=== PATIENT | female | born 1960 | race Two or more races ===

== ENCOUNTER 2022-10-17 22:05 | Inpatient (IN) | payer OTHER ==
[~2022-10-17] VITALS: Ht 152.4 cm; Wt 90.7 kg
[~2022-10-17 22:05] MED LIST: CONCERTA18 MG/BOTT; KLONOPIN0.125 MG/T; PROZAC10 MG
--- NOTE | 2022-10-17 22:45 | NUR ---
SE RECIBE PTE ALERTA, DESORIENTADA X3 ACOMPANADA DE [place] HIJA QUIEN REFIERE QUE AL LLEGAR A LA CASA DE [place] MAMA SE PERCATO QUE LA MISMA SE HABIA TOMADO CLONAZEPAM Y MORFINA Y LUEGO DE ESTO PERDIO CONOCIMIENTO, PRESENTO DEBILIDAD Y DIFICULTAD RESPIRATORIA. REFIRIO TAMBIEN QUE SATURO EN [place] CASA 89% Y LE DIERON TERAPIA RESPIRATORIA DE AGUA SALINA Y ALBUTEROL. AL MOMENTO DEL TRIAGE SAT 92%. SE REALIZA EKG Y SE PRESENTA A DR. CASPER. SE ACOMODA EN DEMIAN Y SE COLOCA CANULA NASAL A 2LT/MIN
--- NOTE | 2022-10-17 23:13 | NUR ---
SE NOTIFICAN ESTUDIOS PENDIENTE.
--- NOTE | 2022-10-18 01:17 | NUR ---
PACIENTE EVALUADA POR DR. ROBINSON DEALIEN ORDENA TRATAMIETNO,SE EDUCA ACERCA DEL MISMO Y REFIERE ENTENDER. SE CANALIZA Y COLECTAN MUESTRAS DE LABORATORIO MEDIANTE MEDIDAS ASEPTICAS. SE NOTIFICA X RAY A PERSONAL DE TURNO. SE NOTIFICA TERAPIAS Y ABG A PERSONAL DE TURNO.
--- NOTE | 2022-10-18 07:28 | NUR ---
SE RECIBE PTE EN EL AREA DE OBSERVACION EN DEMIAN CON BARANDAS ELEVADA Y TIMBRE ACCESIBLE, PTE NO PRESENTA DOLOR AL MOMENTO, SE OBSERVA VENOPUNCION PATENTE Y ALVARO DE EDEMA. PTE ALERTA Y ORIETNADO POR [address] EDWARDS PTE SE MANTIENE EN OBSERVACION Y BAJO TRATAMIENTO. SE LE LALA TUBO SARAH PARA TRANFUNDIR 2 UNIDADES DE PRBC SE ENVIA AL BANCO DE ASHLEY.
--- NOTE | 2022-10-18 08:29 | NUR ---
PACIENTE CON ORDEN MEDICA DE TERAPIA RESPIRATORIA NOTIFICADA A LAS 7:20 AM A PERSONAL DE TERAPIA RESPIRATORIA Kirk INTERIANO.
== END 2022-11-01 22:15 | disposition expired | DRG 374 ==
LOC: ER 22:05 → SEC-K 10-18 13:32 → MEDI 10-18 15:55 → MEDJ 10-22 18:54
PROVIDERS: ADMIT Internal Medicine; ATTEND Internal Medicine
PROC: BB24ZZZ Computerized Tomography (CT Scan) of Bilateral Lungs (ICD-10-PCS; 2022-10-18)
PROC: 3E0F7GC Introduction of Other Therapeutic Substance into Respiratory Tract, Via Natural or Artificial Opening (ICD-10-PCS; 2022-10-18)
PROC: 30233N1 Transfusion of Nonautologous Red Blood Cells into Peripheral Vein, Percutaneous Approach (ICD-10-PCS; 2022-10-18)
PROC: 0W9B3ZZ Drainage of Left Pleural Cavity, Percutaneous Approach (ICD-10-PCS; principal; 2022-10-21)
PROC: 0W9G3ZZ Drainage of Peritoneal Cavity, Percutaneous Approach (ICD-10-PCS; 2022-10-21)
PROC: 0W9G3ZZ Drainage of Peritoneal Cavity, Percutaneous Approach (ICD-10-PCS; 2022-10-28)
DX: C78.5 Secondary malignant neoplasm of large intestine and rectum (principal); J18.9 Pneumonia, unspecified organism; C78.7 Secondary malignant neoplasm of liver and intrahepatic bile duct; J91.0 Malignant pleural effusion; E87.1 Hypo-osmolality and hyponatremia; N17.8 Other acute kidney failure; R18.0 Malignant ascites; E86.0 Dehydration; D72.828 Other elevated white blood cell count; J20.9 Acute bronchitis, unspecified; E11.9 Type 2 diabetes mellitus without complications; Z79.4 Long term (current) use of insulin; Z66 Do not resuscitate; C50.911 Malignant neoplasm of unspecified site of right female breast; D63.0 Anemia in neoplastic disease; F41.8 Other specified anxiety disorders; K59.00 Constipation, unspecified